=== PATIENT | male | born 1975 | race Caucasian/White ===

== ENCOUNTER 2017-04-27 03:56 | Emergency (ER) | payer OTHER ==
[~2017-04-27] VITALS: Ht 172.7 cm; Wt 77.1 kg
--- NOTE | 2017-04-27 04:10 | NUR ---
Pt ambulated to room with steady gait. Pt c/o waking up tonight with increased left elbow pain s/p an injury 4 days ago. Pt c/o swelling and decreased ROM due to pain. No swelling noted and pt has full ROM. Pt seen by Dr. Thomas. Awaiting xrays.
--- NOTE | 2017-04-27 04:27 | NUR ---
xray at bedside
[2017-04-27] MEDS ORDERED: HYDROCODONE/APAP 10-325 MG TABLET PO ONE (05:00)
--- NOTE | 2017-04-27 05:04 | NUR ---
Pt medicated for discomfort. Pt stable for discharge per MD. Pt given ACI. Pt verbalized understanding of dc instructions. Pt ambulated out of er with steady gait to wait for ride.
[2017-04-27 05:07] VITALS: BP 124/68
[2017-04-27] MEDS ORDERED: HYDROCODONE/APAP 10-325 MG TABLET ONE (05:13)
== END 2017-04-27 05:08 | disposition home or self-care (01) ==
LOC: ER 04:01
DX: S50.02XA Contusion of left elbow, initial encounter (principal); F17.200 Nicotine dependence, unspecified, uncomplicated; W22.03XA Walked into furniture, initial encounter; Y93.89 Activity, other specified; Y92.9 Unspecified place or not applicable; Y99.9 Unspecified external cause status
CPT/HCPCS: 73080; 99284; A4663